=== PATIENT | male | born 2005 | race Caucasian/White ===

== ENCOUNTER 2025-04-25 14:59 | Outpatient (CLI) | payer BC ==
--- NOTE | 2025-04-25 17:06 | RADIOLOGY REPORT ---
EXAM: MR MRI LOWER EXTREMITY LEFT HISTORY: SPRAIN OF ANTERIOR CRUCIATE LIGAMENT OF LEFT KNEE, INIT COMPARISON: None TECHNIQUE: Multiplanar, multisequence imaging of the left knee was performed without contrast FINDINGS: MEDIAL COMPARTMENT: Intact medial meniscus. No focal chondrosis or subchondral edema. LATERAL COMPARTMENT: Question radial type tear of the posterior root of the lateral meniscus (6-18). Kissing bone contusion pattern of the lateral femoral condyle deep to the terminal sulcus and posterolateral tibial plateau PATELLOFEMORAL COMPARTMENT: No focal chondrosis or subchondral edema. CRUCIATE LIGAMENTS: Complete tear of the anterior cruciate ligament of the proximal femoral origin to midsubstance. posterior cruciate ligament is intact. MEDIAL SUPPORTING STRUCTURES: Intact medial collateral ligament. LATERAL SUPPORTING STRUCTURES: Intact iliotibial band, lateral capsular ligament, fibular collateral ligament, popliteus, and biceps femoris tendons EXTENSOR MECHANISM: Intact JOINT SPACE/FLUID: Trace knee joint effusion. Trace amount of synovitis versus intra-articular body in the superolateral gutter. trace Goodman's cyst. BONES: Kissing bone contusion pattern of the lateral femoral condyle and posterolateral tibial plateau additional trace bone marrow edema posterior medial tibial plateau. MUSCLES: Normal in signal intensity and morphology NEUROVASCULAR: Unremarkable OTHER: None IMPRESSION: 1. Complete tear of the anterior cruciate ligament. 2. Question radial type tear of the posterior root of the lateral meniscus. 3. Kissing bone contusion pattern of the lateral femoral condyle and posterolateral tibial plateau.
== END 2025-04-25 23:59 | disposition home or self-care (01) ==
LOC: MRI 14:59
PROVIDERS: ATTEND Orthopaedic Surgery
DX: S83.512A Sprain of anterior cruciate ligament of left knee, initial encounter (principal); S70.12XA Contusion of left thigh, initial encounter; X58.XXXA Exposure to other specified factors, initial encounter; Y93.89 Activity, other specified; Y92.89 Other specified places as the place of occurrence of the external cause; Y99.8 Other external cause status
CPT/HCPCS: 73721